=== PATIENT | female | born 1965 | race Caucasian/White ===

== ENCOUNTER → 2018-01-27 07:59 | Outpatient (CLI) | payer SELFPAY ==
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
== END ==
PROVIDERS: Referring Provider Chiropractor; Visit Provider Chiropractor
DX: S53.402A Unspecified sprain of left elbow, initial encounter (principal)
CPT/HCPCS: 73080